=== PATIENT | male | born 1945 | race Caucasian/White ===

== ENCOUNTER 2018-06-15 01:01 | Emergency (ER) | payer OTHER, BC ==
[~2018-06-15] VITALS: Ht 175.3 cm; Wt 83.0 kg
[~2018-06-15 01:01] MED LIST: LISI-729 PO; OMEP40CA PO; PHEN-876 PO; TAMS0.4C38 PO
[2018-06-15 01:05] VITALS: TEMP 36.5; Ht 175.3 cm; Wt 83.0 kg
[2018-06-15] MEDS ORDERED: APIX1TAB3 PO (01:35)
[2018-06-15] MEDS ORDERED: RANI150T85 PO (01:35)
[2018-06-15] MEDS ORDERED: SODIUM CHLORIDE 0.9% 1000ML 1,000 ML IV ONE (01:45)
[2018-06-15] MEDS ORDERED: NITROGLYCERIN 2% OINTMENT 30GM TUBE EXT ONE (01:45)
[2018-06-15 02:17] LABS: BASO % 0.7 %; BASO ABS # 0.05 K/uL (0-0.2); EOS ABS # 0.35 K/uL (0-0.5); HEMATOCRIT 39.4 % (42-52); HEMOGLOBIN 13.2 g/dL (14.0-18.0); IG# 0.01 K/uL (0.00-0.02); LYMPH % 39.9 %; LYMPH ABS # 2.81 K/uL (1.2-3.4); MEAN CELL VOLUME 92.9 fL (80-100); MEAN CORPUSCULAR HEMOGLOBIN 31.1 pg (25-34); MEAN CORPUSCULAR HGB CONC 33.5 g/dl (32-36); MEAN PLATELET VOLUME 10.5 fL (7.4-10.4); MONO % 12.1 %; MONO ABS # 0.85 K/uL (0.11-0.59); NEUT % 42.2 %; NEUT ABS # 2.97 K/uL (1.4-6.5); PLATELET COUNT 247 K/uL (130-400); RED CELL DISTRIBUTION WIDTH CV 13.1 % (11.5-14.5); RED CELL DISTRIBUTION WIDTH SD 44.4 fL (36.4-46.3); WHITE BLOOD COUNT 7.04 K/uL (4.8-10.8)
[2018-06-15 02:36] LABS: ALBUMIN 3.7 gm/dl (3.4-5.0); CALCIUM 9.1 mg/dl (8.5-10.1); CREATININE 1.14 mg/dl (0.60-1.40); TOTAL PROTEIN 7.3 gm/dl (6.4-8.2)
--- NOTE | 2018-06-15 04:05 | EMERGENCY ROOM VISIT NOTE ---
ED Visit Note First contact with patient: 01:29 I saw this patient in conjunction with Mark Lima PA-C. I agree with his decision making and treatment plan.
[2018-06-15 04:21] VITALS: BP 125/79; PULSE 52; O2SAT 95
--- NOTE | 2018-06-15 06:53 | DIAGNOSTIC IMAGING REPORT ---
CHEST 2 VIEWS ROUTINE HISTORY: 72 years-old Male Epigastric abd pains acute epigastric abdominal pain COMPARISON: Chest radiograph 07/20/2016 TECHNIQUE: PA and lateral views of the chest FINDINGS: Cardiomediastinal and hilar silhouettes are within normal limits. Mild right hemidiaphragmatic elevation. Unchanged mild biapical pleural-parenchymal scarring/pleural thickening without pneumothorax, pleural effusion, focal airspace consolidation or overt pulmonary edema. Degenerative changes of the shoulders and spine. IMPRESSION: No acute process. The above report was generated using voice recognition software. It may contain grammatical, syntax or spelling errors. Electronically signed by: Fan Connolly M.D. 06/15/2018 6:52 AM Dictated Date/Time: 06/15/2018 6:50 AM
--- NOTE | 2018-06-15 07:02 | EMERGENCY ROOM VISIT NOTE ---
History First contact with patient: :29 Chief Complaint: CARDIAC ASSESSMENT Stated Complaint: POSS HEART ATTACK Nursing Triage Summary: Pt reports about one hour prior to arrival patient started with chest pain that he thought was heart burn. Pt took tums and pepto with no relief. Lungs clear, denies SOB. Pt hx afib. Pt reports the pain radiates into his neck. Pt reports an intense burning pain. Denies nausea. History of Present Illness The patient is a 72 year old male who presents to the Emergency Room with complaints of upper abdominal pain that started about 1 hour ago. The patient has a long-standing history of GERD and takes Zantac on a daily basis. He thought this was his normal heartburn and took Tums and Pepto-Bismol without any relief of symptoms. The patient states that as he was waiting for his treatment at home to work he had some vague discomfort into his neck. His discomfort is primarily a burning discomfort, and does not otherwise radiate. He does not have nausea or vomiting. No lightheadedness or dizziness. He does not have distinct chest pain, and he states his symptoms began while he was watching television at home. The patient has not had recent fever or chills. He is otherwise usually healthy and does take Eliquis for paroxysmal A. fib. He rates his current discomfort a 0/10. Review of Systems More than 10 systems were reviewed and otherwise negative with the exception of history of present illness. Past Medical/Surgical History Medical Problems: (1) Amnesia (2) Closed head injury (3) GERD (gastroesophageal reflux disease) (4) HTN (hypertension) (5) No known drug allergy Surgical Problems: (1) H/O colonoscopy (2) H/O hernia repair (3) History of esophagogastroduodenoscopy (EGD) Family History No pertinent family history Social History Smoking Status: Never Smoker Marital Status: Housing Status: lives with family Occupation Status: retired Current/Historical Medications Scheduled Apixaban (Eliquis), 1 TAB PO BID Lisinopril (Prinivil), 5 MG PO DAILY Ranitidine (Zantac), 1 TAB PO BID Tamsulosin Hcl (Flomax), 0.4 MG PO DAILY Physical Exam Vital Signs Date Time Temp Pulse Resp B/P (MAP) Pulse Ox O2 Delivery O2 Flow Rate FiO2 06/15/18 04:21 52 19 125/79 95 06/15/18 03:40 55 17 95 Room Air 06/15/18 03:31 138/75 06/15/18 03:10 53 13 96 Room Air 06/15/18 03:08 54 22 113/64 95 Room Air 06/15/18 03:01 57 22 97 Room Air 06/15/18 02:31 54 23 132/73 98 Room Air 06/15/18 02:01 46 23 133/78 95 Room Air 06/15/18 01:31 46 19 126/70 97 Room Air 06/15/18 01:19 144/77 06/15/18 01:17 51 06/15/18 01:08 Room Air 06/15/18 01:05 36.5 85 18 151/81 97 Room Air 06/15/18 01:05 Room Air 06/15/18 01:05 151/81 Physical Exam VITALS: Vitals are noted on the nurse's note and reviewed by myself. Vital signs stable. GENERAL: Well-developed, well-nourished, white male, who is in no acute distress and resting comfortably. Patient is cooperative with the examination. HEAD: Normocephalic atraumatic. NECK: Supple without nuchal rigidity. No lymphadenopathy. No thyromegaly. Cervical spine is nontender. HEART: Regular rate and rhythm without murmurs gallops or rubs. LUNGS: Clear to auscultation bilaterally without wheezes, rales or rhonchi. No retractions or accessory muscle use. ABDOMEN: Positive normal bowel sounds x 4. Soft, nontender, without masses or organomegaly. No guarding or rebound tenderness. MUSCULOSKELETAL: No muscle atrophy, erythema, or edema noted. Full range of motion in all extremities. Medical Decision & Procedures ER Provider Diagnostic Interpretation: CHEST 2 VIEWS ROUTINE HISTORY: 72 years-old Male Epigastric abd pains acute epigastric abdominal pain COMPARISON: Chest radiograph 07/20/2016 TECHNIQUE: PA and lateral views of the chest FINDINGS: Cardiomediastinal and hilar silhouettes are within normal limits. Mild right hemidiaphragmatic elevation. Unchanged mild biapical pleural-parenchymal scarring/pleural thickening without pneumothorax, pleural effusion, focal airspace consolidation or overt pulmonary edema. Degenerative changes of the shoulders and spine. IMPRESSION: No acute process. Laboratory Results 06/15/18 01:15 Red Blood Count 4.24, Mean Corpuscular Volume 92.9, Mean Corpuscular Hemoglobin 31.1, Mean Corpuscular Hemoglobin Concent 33.5, Mean Platelet Volume 10.5, Neutrophils (%) (Auto) 42.2, Lymphocytes (%) (Auto) 39.9, Monocytes (%) (Auto) 12.1, Eosinophils (%) (Auto) 5.0, Basophils (%) (Auto) 0.7, Neutrophils # (Auto ) 2.97, Lymphocytes # (Auto) 2.81, Monocytes # (Auto) 0.85, Eosinophils # (Auto ) 0.35, Basophils # (Auto) 0.05 06/15/18 01:15 Test 06/15/18 01:15 06/15/18 03:32 White Blood Count 7.04 K/uL (4.8-10.8) Red Blood Count 4.24 M/uL (4.7-6.1) Hemoglobin 13.2 g/dL (14.0-18.0) Hematocrit 39.4 % (42-52) Mean Corpuscular Volume 92.9 fL (80-100) Mean Corpuscular Hemoglobin 31.1 pg (25-34) Mean Corpuscular Hemoglobin Concent 33.5 g/dl (32-36) Platelet Count 247 K/uL (130-400) Mean Platelet Volume 10.5 fL (7.4-10.4) Neutrophils (%) (Auto) 42.2 % Lymphocytes (%) (Auto) 39.9 % Monocytes (%) (Auto) 12.1 % Eosinophils (%) (Auto) 5.0 % Basophils (%) (Auto) 0.7 % Neutrophils # (Auto) 2.97 K/uL (1.4-6.5) Lymphocytes # (Auto) 2.81 K/uL (1.2-3.4) Monocytes # (Auto) 0.85 K/uL (0.11-0.59) Eosinophils # (Auto) 0.35 K/uL (0-0.5) Basophils # (Auto) 0.05 K/uL (0-0.2) RDW Standard Deviation 44.4 fL (36.4-46.3) RDW Coefficient of Variation 13.1 % (11.5-14.5) Immature Granulocyte % (Auto) 0.1 % Immature Granulocyte # (Auto) 0.01 K/uL (0.00-0.02) Anion Gap 7.0 mmol/L (3-11) Est Creatinine Clear Calc Drug Dose 57.7 ml/min Estimated GFR () 73.5 Estimated GFR (Non- 63.4 BUN/Creatinine Ratio 17.1 (10-20) Calcium Level 9.1 mg/dl (8.5-10.1) Total Bilirubin 0.3 mg/dl (0.2-1) Aspartate Amino Transf (AST/SGOT) 20 U/L (15-37) Alanine Aminotransferase (ALT/SGPT) 22 U/L (12-78) Alkaline Phosphatase 54 U/L (45-117) Total Protein 7.3 gm/dl (6.4-8.2) Albumin 3.7 gm/dl (3.4-5.0) Globulin 3.6 gm/dl (2.5-4.0) Albumin/Globulin Ratio 1.0 (0.9-2) Lipase 164 U/L (73-393) Thyroid Stimulating Hormone (TSH) 4.350 uIu/ml (0.300-4.500) Bedside Troponin I < 0.030 ng/ml (0-0.045) Medications Administered Medications (Trade) Dose Ordered Sig/Kari Route Start Time Stop Time Status Last Admin Dose Admin Nitroglycerin (Nitroglycerin 2% Oint) 1 inch NOW ONCE EXT 06/15/18 01:45 06/15/18 01:46 DC 06/15/18 01:50 1 INCH Sodium Chloride 1,000 ml @ 999 mls/hr Q1H1M ONCE IV 06/15/18 01:45 06/15/18 02:45 DC 06/15/18 01:57 999 MLS/HR ED Course Physical exam and history were performed. Nursing notes, EMR, and Medication List were personally reviewed. Patient appears to have some upper abdominal pain with possible radiation into his neck. The patient does have a known history of GERD and is currently without significant symptoms. EKG was performed and was sinus rhythm with first -degree AV block at 60 bpm. There is a nonspecific T-wave abnormality but no distinct ST elevation. When compared to EKG of July 18, 2016 he appears to have new findings with the first-degree AV block. IV access was established and labs are obtained. The patient was placed on the cardiac care nurse. He was given an inch of Nitropaste. The patient's blood work is as above and was reviewed. He does not have a significantly elevated white blood cell count, gross anemia, bandemia, or significant electrolyte imbalance lipase and transaminases are not diagnostic. Troponin 2 is negative. Chest x-ray was reviewed by myself and radiology as showing no process. The patient continued without significant pain while here in the department. The case was discussed with my attending physician, Dr. Cutler, who also independently evaluated the patient. I did discuss options of care with the patient, and offered admission versus outpatient evaluation. Utilizing shared decision making the patient voiced a preference of discharge home with outpatient follow-up. This appears reasonable as his symptoms seem to most correlate with a GERD or gastritis type process. The patient understands the importance of returning to the ER with any new, worsening, or concerning symptoms. He was pleased with plan of care and was discharged home under the care of his who is acting as the log truck driver. The chart was completed utilizing [employer] Speech Voice Recognition Software. Grammatical errors, random word insertions, pronoun errors, and incomplete sentences are an occasional consequence of this system due to software limitations, ambient noise, and hardware issues. Any formal questions or concerns about the content, text, or information contained within the body of this dictation should be directly addressed to the provider for clarification. . Medical Decision Differential diagnosis includes, but is not limited to: Myocardial infarction, dysrhythmia, pericarditis, pneumothorax, aortic aneurysm/dissection, DVT/PE, anxiety, GERD, PUD, electrolyte imbalance, thyroid disorder, pneumonia, bronchitis, pancreatitis, and others Impression Primary Impression: Upper abdominal pain Departure Information Dispostion Home / Self-Care Condition GOOD Forms IMPORTANT VISIT INFORMATION Patient Instructions My [facility] Additional Instructions You were seen and evaluated today on an emergency basis only. This is not a substitute for, or an effort to provide, complete comprehensive medical care. It is not possible to recognize and treat all injuries or illnesses in a single emergency department visit. For this reason it is recommended that you followup with your primary care physician on Monday for recheck of your condition. Call later today to help schedule the appointment. You are welcome to return to the emergency department anytime with new, worsening, or concerning symptoms.
== END 2018-06-15 04:20 | disposition home or self-care (01) ==
LOC: C.EDB 01:02 → C.EDA 04:20
DX: R10.10 Upper abdominal pain, unspecified (principal); I48.91 Unspecified atrial fibrillation; I10 Essential (primary) hypertension; K21.9 Gastro-esophageal reflux disease without esophagitis; Z79.01 Long term (current) use of anticoagulants; Z79.899 Other long term (current) drug therapy

== ENCOUNTER → 2018-06-19 | Outpatient (CLI) | payer OTHER, BC ==
[~2018-06-19] MED LIST changes: +APIX1TAB3 PO; -OMEP40CA PO; -PHEN-876 PO; +RANI150T85 PO
== END | disposition home or self-care (01) ==
LOC: C.RDSM 09:51
PROVIDERS: ATTEND Orthopaedic Surgery
DX: M25.551 Pain in right hip (principal)